=== PATIENT | female | born 1965 | race Caucasian/White ===

== ENCOUNTER 2021-02-25 15:01 | Emergency (ER) | payer BC ==
[~2021-02-25 15:01] MED LIST: DIFLUCAN150 MG PO; KLONOPIN1 MG PO; PREMARIN VAG CR30 GM TOP; PROGESTERONE100 MG PO; PROZAC 10 MG CA10 MG PO
[2021-02-25 19:15] LABS: HEMOGLOBIN 16.1 gm/dl (12.3-15.3); RED BLOOD COUNT 5.28 M/UL (4.00-5.10); WHITE BLOOD COUNT 6.5 K/UL (4.5-11.0)
[2021-02-25 19:29] LABS: BUN/CREATININE RATIO 10 (0-10)
[2021-02-25] MEDS ORDERED: ZOFRAN ODT 4 MG4 MG SL (20:28)
[2021-02-25] MEDS ORDERED: REGLAN10 MG PO (20:41)
[2021-02-25] MEDS ORDERED: PHENERGAN 25 MG25 M1 PO (20:41)
== END 2021-02-25 18:30 | disposition home or self-care (01) ==
LOC: ER1 15:01
PROVIDERS: Emergency Medicine
DX: R10.31 Right lower quadrant pain (principal); R10.32 Left lower quadrant pain; Z88.1 Allergy status to other antibiotic agents
CPT/HCPCS: 80053; 81001; 83605; 83690; 85025; 87040; 96374; 96375; 99284; J2405; Q9967

== ENCOUNTER → 2021-05-20 | Outpatient (CLI) | payer BC ==
[~2021-05-20] MED LIST changes: +PHENERGAN 25 MG25 M1 PO; +REGLAN10 MG PO; +ZOFRAN ODT 4 MG4 MG SL
== END ==
LOC: KOH-I 14:31
DX: J32.4 Chronic pansinusitis (principal); R09.82 Postnasal drip
CPT/HCPCS: 70486